=== PATIENT | female | born 1940 | race Caucasian/White ===

== ENCOUNTER 2017-02-11 11:58 | Inpatient (IN) | payer MEDICARE ==
[~2017-02-11] VITALS: Ht 168.9 cm; Wt 72.6 kg
[2017-02-18] MEDS ORDERED: MULT-135 PO (10:21)
[2017-02-18] MEDS ORDERED: MOBI15TA PO (10:21)
[2017-02-18] MEDS ORDERED: ASPI1TAB69 PO (10:21)
[2017-02-18] MEDS ORDERED: OSCA200T PO (10:21)
[2017-03-05] MEDS ORDERED: POVIDONE IODINE 5% (ANTISEPSIS KIT) 4 APPLICATIONS EACH NARE PRN (06:00)
[2017-03-05] MEDS ORDERED: SODIUM CHLORID 0.9% 500 ML IV PRN (06:00)
[2017-03-05] MEDS ORDERED: LACTATED RINGER'S 1000 ML IV PRN (06:00)
[2017-03-05] MEDS ORDERED: CHLORHEXIDINE GLUCONATE 2 % 1 PACK (2 CLOTHS) TOPICAL PRN (06:00)
[2017-03-05] MEDS ORDERED: ceFAZolin 2 GM PREMIX 50 ML IV SCH (06:00)
[2017-03-05] MEDS ORDERED: INSULIN HUMAN REGULAR 1,000 UNITS/10 ML VIAL SQ PRN (06:00)
[2017-03-05] MEDS ORDERED: METOPROLOL TARTRATE 25 MG TAB PO PRN (06:00)
[2017-03-05] MEDS ORDERED: POVIDONE IODINE 7.5% SCRUB 118 ML BOTTLE TOPICAL SCH (06:00)
--- NOTE | 2017-03-05 06:51 | HHI.DCPOC ---
Discharge Care Plan Diagnosis: (1) Primary localized osteoarthrosis, lower leg (2) Status post total knee replacement, right Your Health Problems Are: Difficulty with ADL Goals to Promote Your Health * To prevent worsening of your condition and complications * To maintain your health at the optimal level Directions to Meet Your Goals Take your medications as prescribed Follow your dietary instruction Follow activity as directed Keep your appointments as scheduled Take your immunizations and boosters as scheduled If your symptoms worsen call your PCP, if no PCP go to Urgent Care Center or Emergency Room Smoking is Dangerous to Your Health. Avoid second hand smoke Call the 24-hour hour crisis hotline for domestic abuse at Alexander Beck March 05, 2017 06:51
[2017-03-05] MEDS ORDERED: OS-CTAB PO (06:52)
[2017-03-05] MEDS ORDERED: MULTTAB77 PO (06:52)
[2017-03-05] MEDS ORDERED: ASPI81CH CHEW (06:52)
--- NOTE | 2017-03-05 06:52 | HHI.FF ---
Face to Face Verification Diagnosis: (1) Primary localized osteoarthrosis, lower leg (2) Status post total knee replacement, right Physical Therapy Gait training, Transfer training, bed to chair Knee: Total knee Right LE Weight Bearing: WB as tolerated Right LE Range of Motion: Active ROM Nursing Nursing: Alisa teaching, Dressing changes Dressing Changes: Daily dressing change I have seen patient Hailey Mejia on 03/05/17. My clinical findings support the need for the requested home health care services because: Limited ability to care for self High risk of falls I certify that my clinical findings support that this patient is homebound because: Post-op weakness Unsteady gait/balance Alexander Beck March 05, 2017 06:52
[2017-03-05] MEDS ORDERED: COMMODE 3-IN-11 MIS (06:57)
[2017-03-05] MEDS ORDERED: CPMMACHINE (06:57)
[2017-03-05] MEDS ORDERED: WALKER WHEELS/F1 MIS (06:57)
[2017-03-05 07:00] VITALS: BP 154/74; PULSE 98; RESP 20; TEMP 98.2; O2SAT 95
[2017-03-05] MEDS ORDERED: TRANEXAMIC ACID IV SCH ×2 (07:00→12:00)
[2017-03-05] MEDS ORDERED: ROPIVACAINE PERI-ARTICULAR INJECTION. P-ARTICULR SCH ×5 (07:00)
[2017-03-05] MEDS ORDERED: SODIUM CHLORIDE 0.9% IV SCH ×2 (07:00→12:00)
[2017-03-05] MEDS ORDERED: SODIUM CHLOR 0.9% 250 ML INJ 250 ML ONE (07:07)
[2017-03-05] MEDS ORDERED: VANCOMYCIN HCL 1000 MG VIAL ONE (07:07)
[2017-03-05] MEDS ORDERED: DEXAMETHASONE SOD PHOS 20 MG/5 ML VIAL ONE (07:07)
[2017-03-05] MEDS ORDERED: GENTAMICIN SULFATE 80 MG/2 ML VIAL ONE (07:28)
[2017-03-05] MEDS ORDERED: MIDAZOLAM HCL 2 MG/2 ML VIAL ONE (07:52)
[2017-03-05] MEDS ORDERED: ACETAMINOPHEN 1000 MG/100 ML VIAL IV ONE (07:53)
[2017-03-05] MEDS ORDERED: BUPIVACAINE LIPOSOME PF 1.3% 20 ML VIAL ONE (09:47)
--- NOTE | 2017-03-05 10:05 | PD.OP ---
cc: Hebert Jackson MD Operative Report Date of Surgery: March 05, 2017 Preoperative Diagnosis: Right knee severe osteoarthritis Postoperative Diagnosis: Same Procedure: Right total knee arthroplasty Anesthesia: General and adductor canal block Surgeon: Hebert Jackson Sound Designer(s): ZACK Bonner The surgical procedure was assisted by my Advanced Registered Nurse Practitioner. My FURNACE PACKER presence was necessary throughout this case for the manipulation and positioning of the surgical extremity. My FURNACE PACKER was assisting me throughout the duration of this procedure. The skill set of an Advance Registered Nurse Practitioner was medically necessary to complete this procedure. During the surgical case, the fuel quality tech was working at the back table and the Advance Registered Nurse Practitioner was directly assisting me. Operation and Findings: IMPLANTS: DePuy Attune: Patella: size 32. Femur, posterior stabilized size 7. Tibia, rotating platform size 5. Tibial insert, rotating platform, posterior stabilized size 6 mm thickness. ESTIMATED BLOOD LOSS: 100 cc TOURNIQUET TIME: 38 minutes at 250 mmHg pressure. JUSTIFICATION FOR PROCEDURE: The patient has end-stage osteoarthritis to the knee. There is an attached conservative measures pathway form in the chart that describes the nonoperative measures that were undertaken prior to consideration of surgical management. The patient understood the risks and benefits of surgical management. See my office notes for further details PROCEDURE: The patient was brought back to the operative theatre. Adequate anesthesia was obtained. The patient received intravenous vancomycin and Ancef. The lower extremity was prepped and draped in the usual sterile fashion.The leg was exsanguinated, the tourniquet was raised. A standard anterior incision was performed followed by medial parapatellar arthrotomy was performed. End-stage arthritis was identified. Osteotomy of the patella was performed. We drilled holes for the patella. We trialed the patella component. We placed an intramedullary guide into the distal femur. We ultimately resected 13 mm off of the distal femur in 5 degrees of valgus. The remnants of the ACL and PCL were resected. Osteotomy of the proximal tibia was performed, resecting 7 mm off of the medial side. This was done due to significant deficiency on the lateral tibial plateau from erosive changes. This was done with 3 degrees of posterior slope using an extramedullary guide. The distal end of the guide was placed in the mid aspect of the ankle. The femur was sized, and four chamfer cuts were completed in 3 of external rotation. We then cut the central box in the distal femur to replace the PCL. We resected the remnants of the menisci and removed osteophytes off of the femur and tibia. We then trialed the knee. We punched the tibia for the keel, and then used standard technique to cement in components. Excess cement was removed. We trialed the knee again and the final polyethylene thickness was chosen to provide extension to 0 degrees, and flexion of 140 degrees to gravity. The ligaments were appropriately balanced. Lateral release was necessary to obtain excellent patellofemoral tracking. The tourniquet was released and adequate hemostasis was obtained. An intra- articular injection of a ropivacaine cocktail was injected. The posterior knee was inspected for excess cement, which was removed. The final polyethylene was put into position after thorough irrigation. We then closed deep fascia with a #2 Stratafix followed by skin with 2-0 Vicryl followed by briana. Postop plan is to weight-bear as tolerated. DVT prophylaxis will be performed with SCDs, NICOLE aponte, early mobilization, and Lovenox followed by aspirin. Hebert Jackson MD March 05, 2017 10:05
[2017-03-05] MEDS ORDERED: ENOX40P SQ (10:06)
[2017-03-05] MEDS ORDERED: ASPI325T PO (10:06)
[2017-03-05] MEDS ORDERED: NORC5TAB PO (10:06)
[2017-03-05] MEDS ORDERED: SODIUM CHLORIDE 0.9% FLUSH 5 ML FLUSH IVF PRN (10:15)
[2017-03-05] MEDS ORDERED: MAGNESIUM HYDROXIDE SUSP 30 ML CUP PO PRN (10:15)
[2017-03-05] MEDS ORDERED: Post-op Orders (for Pharmacy) MISC XX ONE (10:15)
[2017-03-05] MEDS ORDERED: diphenhydrAMINE HCL 50 MG/ML VIAL IV PRN (10:15)
[2017-03-05] MEDS ORDERED: BISACODYL 10 MG SUPP RECTAL PRN (10:15)
[2017-03-05] MEDS ORDERED: NALOXONE HCL 0.4 MG/ML AMP IV PRN (10:15)
[2017-03-05] MEDS ORDERED: ONDANSETRON HCL 4 MG/2 ML VIAL IVP PRN (10:15)
[2017-03-05] MEDS ORDERED: ACETAMINOPHEN/HYDROcodone 325 MG/5 MG TAB PO PRN (10:15)
[2017-03-05] MEDS ORDERED: ALUMINUM/MAGNESIUM/SIMETH 30 ML CUP PO PRN (10:15)
[2017-03-05] MEDS ORDERED: MORPHINE SULFATE 4 MG/ML INJ IV PUSH PRN (10:15)
[2017-03-05] MEDS ORDERED: DO NOT ADM ANY ANTICOAGULANT DRUGS PRN (10:33)
[2017-03-05] MEDS ORDERED: fentaNYL CITRATE 250 MCG/5 ML AMP ONE (10:41)
[2017-03-05] MEDS ORDERED: *morphine SULFATE 8 MG/ML PERIprocedure ONLY ONE ×2 (10:47→11:02)
[2017-03-05] MEDS ORDERED: PROPOFOL 200 MG/20 ML AMP IV ONE (11:24)
[2017-03-05] MEDS ORDERED: ePHEDrine/NS 25 MG/5 ML SYR IV ONE (11:24)
[2017-03-05] MEDS ORDERED: NEOSTIGMINE METHYLSULFATE 10 MG/10 ML VIAL IV PUSH ONE (11:24)
[2017-03-05] MEDS ORDERED: ONDANSETRON HCL 4 MG/2 ML VIAL IV PUSH ONE (11:24)
[2017-03-05] MEDS ORDERED: LACTATED RINGER'S 1000 ML INJ 1,000 ML IV ONE (11:24)
[2017-03-05] MEDS: SODIUM CHLOR 0.9% 1000 ML INJ 1,000 ML IV SCH ×3 (11:30→23:25)
--- NOTE | 2017-03-05 11:35 | RADRPT ---
EXAM DATE/TIME: 03/05/2017 10:56 [facility] COMPARISON: No previous studies available for comparison. INDICATIONS : Pre-op, right knee replacement. MEDICAL HISTORY : None. SURGICAL HISTORY : None. ENCOUNTER: Initial ACUITY: 1 day PAIN SCORE: 0/10 LOCATION: Right knee FINDINGS: 2 views of the right knee. Total knee prosthesis in place. Alignment within normal limits. No evidenc e of fracture. Anterior cutaneous briana. CONCLUSION: Postoperative appearance of total knee prosthesis. Neil Alfredo MD on March 05, 2017 at 11:32 Board Certified Radiologist. This report was verified electronically.
[2017-03-05 12:00] VITALS: BP 142/70; PULSE 80; RESP 14; TEMP 95.5; O2SAT 99
--- NOTE | 2017-03-05 12:28 | PD.CONS ---
HPI Service [facility] Hospitalists Consult Requested By Dr. Hebert Jackson Reason for Consult Medical Management Primary Care Physician Arsh Lawson MD Diagnoses: History of Present Illness Ms. Mejia is a pleasant 76 y/o female with hyperlipidemia and osteoarthritis who was admitted to [facility] on 03/05/17 for elective right total knee arthroplasty with Dr. Jackson. [facility] Hospitalist team was consulted to help manage the pts chronic medical issues. Pt is seen post-operatively and is without any specific complaints. She denies any nausea/vomiting, chest pain, abdominal pain, fevers or chills, SOB or palpitations. Her Raygoza cath is in place and no noted hematuria. Vital signs are stable. Review of Systems Constitutional: DENIES: Fever, Chills Respiratory: DENIES: Shortness of breath Cardiovascular: DENIES: Chest pain, Palpitations Gastrointestinal: DENIES: Abdominal pain, Nausea, Vomiting Musculoskeletal: COMPLAINS OF: Joint pain Integumentary: DENIES: Rash Neurologic: DENIES: Headache Psychiatric: DENIES: Confusion Past Family Social History Past Medical History Hyperlipidemia Stage 2 CKD, GFR was 66 on 02-18-17 Osteoarthritis Diverticulosis of colon/Hx of colon polyps Past Surgical History Left total knee arthroplasty 2013 Varicose vein surgery Bunion surgery Cystourethroscopy Reported Medications Multi-Day (Multiple Vitamins W/ Iron) 1 Tab Tab 1 Tab PO DAILY Os-Noel Extra D3 (Calcium Carbonate-Cholecalciferol) 500-600 Mg-Unit Tab 1 Tab PO DAILY Aspirin 81 Mg Chew 81 Mg CHEW DAILY Mobic (Meloxicam) 15 Mg Tab 15 Mg PO DAILY Allergies: Coded Allergies: No Known Allergies (Unverified , 02/18/17) Family History Noncontributory Social History No reported alcohol, tobacco or illicit drug use Physical Exam Vital Signs Vital Signs Date Time Temp Pulse Resp B/P Pulse Ox O2 Delivery O2 Flow Rate FiO2 03/05/17 11:40 97.0 77 12 132/60 100 Nasal Cannula 2 03/05/17 11:30 80 15 138/60 100 Nasal Cannula 2 03/05/17 11:15 85 17 138/65 100 Nasal Cannula 2 03/05/17 11:00 85 14 133/61 99 Nasal Cannula 2 03/05/17 10:45 92 14 140/61 98 Nasal Cannula 2 03/05/17 10:35 97.4 88 14 142/67 100 Nasal Cannula 4 03/05/17 07:00 98.2 98 20 154/74 95 Physical Exam GENERAL: This is a well-nourished, well-developed patient, in no apparent distress. HEENT: Atraumatic. Normocephalic. No temporal or scalp tenderness. No scleral icterus. Airway patent. NECK: Trachea midline, supple, nontender. CARDIO: Regular. RESP: CTA bilaterally. No wheezes, rales, or rhonchi. ABD: +BS, soft, non-tender, nondistended. EXT: Right knee bandages are c/d/i NEURO: Awake and alert. Motor and sensory grossly within normal limits. Normal speech. Laboratory Laboratory Tests Test 03/05/17 07:00 Blood Type A POSITIVE Antibody Screen NEGATIVE Blood Bank Comment Imaging Last Impressions Knee X-Ray 03/05/17 1001 Signed Impressions: Service Date/Time: Sunday, March 05, 2017 10:56 - CONCLUSION: Postoperative appearance of total knee prosthesis. Neil Alfredo MD Assessment and Plan Problem List: (1) Primary localized osteoarthrosis, lower leg Status: Chronic Plan: - Pt is s/p right total knee arthroplasty on 03/05/[address] Jackson. - Post-op pain control per Ortho - IS - PT daily - Constipation precautions. - DVT prophylaxis (2) Status post total knee replacement, right Status: Acute Plan: - See above. (3) Hyperlipidemia Status: Chronic Plan: - Diet controlled Problem Qualifiers (1) Primary localized osteoarthrosis, lower leg: Qualified Code: M17.11 - Primary localized osteoarthrosis, lower leg, right Alina Charles March 05, 2017 12:28 Nelson Penn MD March 05, 2017 20:14
[2017-03-05 16:00] VITALS: BP 146/72; PULSE 93; RESP 13; TEMP 95.7; O2SAT 100
[2017-03-05 16:14] VITALS: O2SAT 100
[2017-03-05] MEDS: SODIUM CHLORIDE 0.9% FLUSH 5 ML FLUSH IVF SCH (19:52)
[2017-03-05 20:00] VITALS: BP 142/65; PULSE 89; RESP 17; TEMP 96.2; O2SAT 99
[2017-03-05] MEDS ORDERED: ZOLPIDEM TARTRATE 5 MG TAB PO PRN (21:00)
[2017-03-06 01:00] VITALS: BP 115/63; PULSE 96; RESP 17; TEMP 96.7; O2SAT 98
[2017-03-06 04:00] VITALS: BP 122/70; PULSE 97; RESP 17; TEMP 98.1; O2SAT 97
[2017-03-06 05:09] LABS: HEMATOCRIT 28.9 % (35.0-46.0); MEAN CELL VOLUME 91.4 FL (80.0-100.0); MEAN CORPUSCULAR HGB CONC 33.9 % (32.0-36.0); PLATELET COUNT 236 TH/MM3 (150-450); RED BLOOD COUNT 3.16 MIL/MM3 (4.00-5.30); REVIEW FLAG FINAL; WHITE BLOOD COUNT 11.9 TH/MM3 (4.0-11.0)
[2017-03-06] MEDS ORDERED: DEXAMETHASONE SOD PHOS 20 MG/5 ML VIAL IV ONE (07:45)
[2017-03-06 08:00] VITALS: BP 142/69; PULSE 91; RESP 18; TEMP 97.5; O2SAT 99
[2017-03-06] MEDS: SODIUM CHLORIDE 0.9% FLUSH 5 ML FLUSH IVF SCH (08:00)
[2017-03-06] MEDS: ACETAMINOPHEN/HYDROcodone 325 MG/5 MG TAB PO PRN ×3 (08:00→16:55)
[2017-03-06] MEDS ORDERED: ENOXAPARIN SODIUM 40 MG/0.4 ML SYRINGE SQ SCH (10:00)
[2017-03-06 12:00] VITALS: BP 122/69; PULSE 80; RESP 18; TEMP 98.1; O2SAT 99
--- NOTE | 2017-03-06 12:29 | PD.ORT.PN ---
Subjective Post Op Day #: 1 Subjective Remarks Patient is OOB in chair with minimal pain to the right knee. Patient requesting to go home with home health today. Objective Vitals Vital Signs Date Time Temp Pulse Resp B/P Pulse Ox O2 Delivery O2 Flow Rate FiO2 03/06/17 08:00 97.5 91 18 142/69 99 03/06/17 07:25 Room Air 03/06/17 04:00 98.1 97 17 122/70 97 03/06/17 01:00 96.7 96 17 115/63 98 03/05/17 20:00 96.2 89 17 142/65 99 03/05/17 19:51 99 Nasal Cannula 2.00 03/05/17 16:14 100 Nasal Cannula 2.00 03/05/17 16:00 95.7 93 13 146/72 100 I/O 03/05/17 03/05/17 03/05/17 03/06/17 03/06/17 03/06/17 07:00 15:00 23:00 07:00 15:00 23:00 Intake Total 2168 ml 737 ml 1247 ml Output Total 1600 ml 450 ml 1400 ml Balance 568 ml 287 ml -153 ml Intake Oral 240 ml 240 ml 240 ml IV Total 828 ml 497 ml 1007 ml Other 1100 ml Output Urine Total 1550 ml 450 ml 1400 ml Estimated Blood Loss 50 ml # Bowel Movements 0 Result Diagram: 03/06/17 0400 Procedures Right TKA Objective Remarks The patient's dressing was changed with scant serosanguineous drainage. Incision is well approximated with surgical clips intact. No redness or s/s of infection. EHL/TA/G intact. Mild calf tenderness and no swelling. 2+ pedal pulses. Minimal swelling. + SILT Assessment & Plan Ortho Post Op Day #: 1 Problem List: Assessment and Plan POD #1: Right TKA 1. WBAT RLE 2. Lovenox followed by ASA for DVT prophylaxis 3. Ice to the right knee PRN 4. Stable for discharge home with home health today. 5. F/U with US of RLE to r/o DVT. Alexander Beck Mar 06, 2017 12:29
--- NOTE | 2017-03-06 14:58 | RADRPT ---
EXAM DATE/TIME: 03/06/2017 13:42 [facility] COMPARISON: No previous studies available for comparison. INDICATIONS : Right leg pain. MEDICAL HISTORY : Arthritis. Stage II renal disease. Cataracts. Anticougulant therapy, Aspirin 81mg. SURGICAL HISTORY : Total knee replacement, left. ENCOUNTER: Initial ACUITY: 1 day PAIN SCORE: 4/10 LOCATION: Right leg. TECHNIQUE: Venous ultrasound of the leg was performed from the inguinal ligament to the proximal calf. Real-abdirashid e, color Doppler and spectral tracing, compression and augmentation techniques were used. FINDINGS: There is normal compressibility of the deep venous system from the inguinal region to the proximal ca lf. No echogenic clot is seen in the lumen of the common femoral, femoral, popliteal, and posterior tibial veins. There is a normal response of the venous system to proximal and distal augmentation an d respiration. CONCLUSION: No evidence of right lower extremity DVT. Neil Alfredo MD on March 06, 2017 at 14:56 Board Certified Radiologist. This report was verified electronically.
[2017-03-06 16:00] VITALS: BP 138/66; PULSE 92; RESP 18; TEMP 98.2; O2SAT 97
[2017-03-06] MEDS ORDERED: DOCUSATE SODIUM 100 MG CAP PO SCH (21:00)
[2017-03-06] MEDS ORDERED: MULTIVITAMINS/MINERALS THERAPEUTIC TAB PO SCH (21:00)
--- NOTE | 2017-03-09 21:49 | HHI.DS ---
Discharge Summary Admission Date March 05, 2017 at 05:36 Discharge Date: Mar 06, 2017 Admitting Diagnosis Primary localized OA, lower leg Status post total knee replacement, right Diagnosis: (1) Primary localized osteoarthrosis, lower leg Diagnosis: Principal (2) Status post total knee replacement, right Diagnosis: Principal Procedures Right TKA Brief History This is a 76 year old female patient for severe OA of the right knee. CBC/BMP: 03/06/17 0400 PE at Discharge The patient's dressing was changed with scant serosanguineous drainage. Incision is well approximated with surgical clips intact. No redness or s/s of infection. EHL/TA/G intact. Mild calf tenderness and no swelling. 2+ pedal pulses. Minimal swelling. + SILT Hospital Course The patient was admitted to the hospital for severe OA of the right knee to have a right TKA. The patient's surgery went well with no complications. The patient is WBAT on the RLE. The patient had a regular diet. The patient was placed on Lovenox followed by ASA for DVT prophylaxis. The patient was discharged home with home health and will f/u with Dr. Jackson in 1-2 weeks. Pt Condition on Discharge: Stable Discharge Disposition: Disch w/ Home Health Serv Discharge Instructions Diet Instructions: As Tolerated, No Restrictions Activities You Can Perform: Weight Bearing as Rosamaria Activities to Avoid: Strenuous Activity Follow up Referrals: Orthopedics with Hebetr Jackson MD SN[facility]/ with [facility] New Medications: Aspirin (Aspirin) 325 Mg Tab 325 MG PO ONCE Start Aspirin after Lovenox is completed. Prevent Blood Clot #30 Ref 0 TAB Commode 3-in-1 (Commode 3-in-1) 1 Mis Mis 1 EA .ROUTE DIRECTED #1 Ref 0 EA CPM-Continuous Passive Motion Machine (CPM-Continuous Passive Motion Machine) 1 Ea Device 1 EA .ROUTE DIRECTED #1 Ref 0 EA Enoxaparin Inj (Lovenox Inj) 40 Mg/0.4 Ml Syr 40 MG SQ DAILY Start Aspirin after Lovenox is completed. Blood Clot Prevention # 10 Ref 0 SYRINGE Hydrocodone-Acetaminophen ([place]) 5-325 mg Tab 1-2 TAB PO Q4H PRN PAIN #60 Ref 0 TAB Walker with Front Wheels (Walker with Front Wheels) 1 Mis Mis 1 EA .ROUTE DIRECTED #1 Ref 0 EA Continued Medications: Calcium Carbonate-Cholecalciferol (Os-Noel Extra D3) 500-600 Mg-Unit Tab 1 TAB PO DAILY Calcium Supplement Ref 0 TAB Multiple Vitamins W/ Iron (Multi-Day) 1 Tab Tab 1 TAB PO DAILY Discontinued Medications: Aspirin (Aspirin) 81 Mg Chew 81 MG CHEW DAILY Ref 0 TAB Meloxicam (Mobic) 15 Mg Tab 15 MG PO DAILY Arthritis pain Ref 0 TAB Alexander Beck Mar 09, 2017 21:49
== END 2017-03-06 18:19 | disposition home health service (06) | DRG 470 ==
LOC: HSDI 03-05 05:36 → EDUNIT# 03-05 07:00 → N06A 03-05 12:33
PROVIDERS: ADMIT Orthopaedic Surgery; ATTEND Orthopaedic Surgery
PROC: 3E0T3CZ (ICD-10-PCS; 2017-03-05)
PROC: 0SRC0J9 Replacement of Right Knee Joint with Synthetic Substitute, Cemented, Open Approach (ICD-10-PCS; principal; 2017-03-05 08:00)
DX: M17.11 Unilateral primary osteoarthritis, right knee (principal); E78.5 Hyperlipidemia, unspecified; Z96.652 Presence of left artificial knee joint; Z79.82 Long term (current) use of aspirin; N18.2 Chronic kidney disease, stage 2 (mild); Z86.010 Personal history of colon polyps
CPT/HCPCS: 73560; 85027; 86850; 86900; 86901; 93971; 94150; C1776; C9290; J0131; J0171; J0690; J0735; J1100; J1580; J1650; J1885; J2250; J2270; J2405; J2710; J2795; J3010; J3370; J7030; J7050; J7120; L1830

== ENCOUNTER → 2017-02-18 | Outpatient (CLI) | payer MEDICARE ==
[~2017-02-18] MED LIST: ASPI1TAB69 PO; ASPI325T PO; ASPI81CH CHEW; COMMODE 3-IN-11 MIS; CPMMACHINE; ENOX40P SQ; MOBI15TA PO; MULT-135 PO; MULTTAB77 PO; NORC5TAB PO; OS-CTAB PO; OSCA200T PO; WALKER WHEELS/F1 MIS
--- NOTE | 2017-02-18 11:17 | RADRPT ---
EXAM DATE/TIME: 02/18/2017 10:52 [facility] COMPARISON: No previous studies available for comparison. INDICATIONS : Evaluate for pneumonia, pneumothorax, or communicable disease. Pre op for surgery on March 05. MEDICAL HISTORY : None. SURGICAL HISTORY : None. ENCOUNTER: Initial ACUITY: 1 day PAIN SCORE: 0/10 LOCATION: Bilateral chest FINDINGS: PA and lateral views of the chest demonstrate the lungs to be symmetrically aerated without evidence of mass, infiltrate or effusion. The cardiomediastinal contours are unremarkable. Osseous structure s are intact. CONCLUSION: No acute disease. Pipo Campbell MD on February 18, 2017 at 11:14 Board Certified Radiologist. This report was verified electronically.
[2017-02-18 12:07] LABS: AUTOMATED NEUTROPHIL # 5.4 TH/MM3 (1.8-7.7); BASOPHIL # 0.1 TH/MM3 (0-0.2); BASOPHIL % 0.7 % (0.0-2.0); EOSINOPHIL # 0.4 TH/MM3 (0-0.4); EOSINOPHIL % 5.1 % (0.0-4.0); HEMATOCRIT 36.1 % (35.0-46.0); HEMO FLAGS DIFF FINAL; LYMPH % 14.9 % (9.0-44.0); LYMPHOCYTE # 1.1 TH/MM3 (1.0-4.8); MEAN CELL VOLUME 92.3 FL (80.0-100.0); MEAN CORPUSCULAR HEMOGLOBIN 30.8 PG (27.0-34.0); MEAN CORPUSCULAR HGB CONC 33.4 % (32.0-36.0); MONO % 7.4 % (0.0-8.0); NEUT % 71.9 % (16.0-70.0); PLATELET COUNT 273 TH/MM3 (150-450); RED BLOOD COUNT 3.91 MIL/MM3 (4.00-5.30); RED CELL DISTRIBUTION WIDTH 14.7 % (11.6-17.2); WHITE BLOOD COUNT 7.5 TH/MM3 (4.0-11.0)
[2017-02-18 12:10] LABS: BLOOD, URINE NEG (NEG); COMMENT (UR) CULT NOT INDICATED; CULTURE IF INDICATED CULT NOT INDICATED; GLUCOSE,URINE NEG (NEG); KETONE, URINE NEG (NEG); MUCUS URINE FEW /lpf (OCC); NITRITE,URINE NEG (NEG); URINE COLOR YELLOW (YELLW/STRAW)
[2017-02-18 12:13] LABS: APTT (PATIENT) 26.7 SEC (24.3-30.1); INTERNATIONAL NORMALIZED RATIO 0.9 RATIO; PROTHROMBIN TIME - PATIENT 10.4 SEC (9.8-11.6)
[2017-02-18 12:23] LABS: ANION GAP 7 MEQ/L (5-15); AST (GOT) 29 U/L (15-37); BICARBONATE 30.2 MEQ/L (21.0-32.0); BLOOD UREA NITROGEN 22 MG/DL (7-18); CHLORIDE 101 MEQ/L (98-107); GLOMERULAR FILTRATION RATE 66 ML/MIN (>89); GLUCOSE,FASTING 74 MG/DL (74-99); POTASSIUM 4.8 MEQ/L (3.5-5.1); SODIUM (NA) 138 MEQ/L (136-145)
[2017-02-18 12:26] LABS: ALKALINE PHOSPHATASE 73 U/L (45-117); ALT (GPT) 31 U/L (10-53); TOTAL BILIRUBIN ADULT 0.8 MG/DL (0.2-1.0)
[2017-02-18 12:27] LABS: WESTERGREN SEDIMENTATION RATE 25 mm/hr (0-30)
--- NOTE | 2017-02-19 11:17 | EKG ---
Date Performed: 02/18/2017 Time Performed: 10:15:09 PTAGE: 76 years EKG: Sinus rhythm POSSIBLE LEFT ATRIAL ENLARGEMENT LOW QRS VOLTAGE IN PRECORDIAL LEADS BORDERLINE ECG NO PREVIOUS TRACING DOCTOR: Klever Carty Interpretating Date/Time 02/19/2017 11:15:49
== END ==
LOC: CPRE 09:51
PROVIDERS: ATTEND Orthopaedic Surgery
DX: Z01.810 Encounter for preprocedural cardiovascular examination (principal); Z01.812 Encounter for preprocedural laboratory examination; M25.50 Pain in unspecified joint; M17.11 Unilateral primary osteoarthritis, right knee; R94.31 Abnormal electrocardiogram [ECG] [EKG]
CPT/HCPCS: 36415; 71020; 80053; 81001; 85025; 85610; 85652; 85730; 93005